=== PATIENT | male | born 1980 | race Caucasian/White ===

== ENCOUNTER 2021-11-29 17:32 | Emergency (ER) | payer OTHER ==
[~2021-11-29] VITALS: Ht 170.2 cm; Wt 113.0 kg
[~2021-11-29 17:32] MED LIST: AMLO10TA80 PO; ASPI-1406 MT; ATOR40TA70 MT; COR3 PO; FURO-151 MT; HYDR-4135 MT; HYDR-4135 PO; INSULIN 70/30 SUBCUT; LOSA100T32 MT; OMEP20CA14 MT; PY25 MT
[2021-11-29] MEDS ORDERED: DEXTROSE 50% WATER 50ML SYRINGE IV ONE (18:15)
[2021-11-29] MEDS ORDERED: SODIUM CHLORIDE 0.9% 1,000 ML IV ONE ×2 (18:15→18:30)
[2021-11-29 18:25] LABS: BASOPHILS % 1.2 % (0.0-2.0); EOSINOPHILS % 2.2 % (0.0-5.0); HEMATOCRIT. 39.8 % (42.0-52.0); HEMOGLOBIN. 13.3 g/dL (14.0-18.0); LYMPHOCYTES % 18.8 % (20.0-50.0); MEAN CORPUSCULAR HEMOGLOBIN 30.9 pg (28.0-32.0); MEAN CORPUSCULAR VOLUME 92.3 fL (80.0-94.0); MEAN PLATELET VOLUME 7.6 fl (7.4-10.4); MONOCYTES % 5.3 % (2.0-8.0); NEUTROPHILS % 72.5 % (40.0-76.0); PLATELET 435 x1000/uL (130-400); RED BLOOD CELL COUNT 4.31 mill/uL (4.7-6.1); RED CELL DISTRIBUTION WIDTH 14.5 % (11.6-14.6)
[2021-11-29] MEDS ORDERED: LEVETIRACETAM 500MG PREMIX 100 ML IV ONE (18:30)
[2021-11-29 18:36] LABS: ETHANOL BLOOD < 10 mg/dL
[2021-11-29 18:38] LABS: CLARITY URINE CLEAR (CLEAR); COLOR URINE YELLOW (YELLOW); KETONES URINE NEGATIVE (NEGATIVE); LEUKOCYTE ESTERASE URINE NEGATIVE (NEGATIVE); NITRITE URINE NEGATIVE (NEGATIVE); OCCULT BLOOD URINE NEGATIVE (NEGATIVE); PH URINE 6.5 (4.5-8.0); PROTEIN URINE 4+ (NEGATIVE); SPECIFIC GRAVITY URINE 1.013 (1.005-1.030); UROBILINOGEN URINE 0.2 E.U./dL (0.2-1.0)
[2021-11-29 18:52] LABS: CHLORIDE 109 mEq/L (98-107)
[2021-11-29 18:58] LABS: *AMPHETAMINES SCREEN URINE NEGATIVE (NEGATIVE); *BARBITURATES SCREEN URINE NEGATIVE (NEGATIVE); *BENZODIAZEPINES SCREEN URINE NEGATIVE (NEGATIVE); *COCAINE SCREEN URINE NEGATIVE (NEGATIVE); CANNABINOID URINE SCREEN NEGATIVE (NEGATIVE); METHADONE URINE SCREEN NEGATIVE (NEGATIVE); OPIATES URINE SCREEN NEGATIVE (NEGATIVE); PHENCYCLIDINE URINE SCREEN NEGATIVE (NEGATIVE)
[2021-11-29 19:10] LABS: BG BASE EXCESS -6.7 mmol/L (-2.0-2.0); BG CARBOXYHEMOGLOBIN 0.7 % (0.5-1.5); BG DEOXYHEMOGLOBIN 2.6 % (0.0-5.0); BG FRACTION INSPIRED OXYGEN 21; BG HCO3 ACT 18.1 mmol/L (22.0-26.0); BG OXYGEN SATURATION 97.4 % (92.0-98.5); BG OXYHEMOGLOBIN 96.7 % (94.0-97.0); BG PCO2 34.3 mmHg (35.0-45.0); BG PH 7.341 (7.350-7.450); BG PO2 95.6 mmHg (75.0-100.0); BG SAMPLE SITE RIGHT RADIAL; BG TOTAL HEMOGLOBIN 13.6 g/dL (12.0-18.0); BG VENT MODE ROOM AIR
[2021-11-29 23:23] VITALS: BP 132/77
== END 2021-11-30 01:12 | disposition left against medical advice (07) ==
LOC: ER 17:32 → CANBEDREQ 11-30 13:45
DX: E11.649 Type 2 diabetes mellitus with hypoglycemia without coma (principal); G40.909 Epilepsy, unspecified, not intractable, without status epilepticus; N28.9 Disorder of kidney and ureter, unspecified; J98.11 Atelectasis; D64.9 Anemia, unspecified; R94.31 Abnormal electrocardiogram [ECG] [EKG]; Z20.822 Contact with and (suspected) exposure to COVID-19; Z79.4 Long term (current) use of insulin; Z79.899 Other long term (current) drug therapy; Z88.2 Allergy status to sulfonamides
CPT/HCPCS: 36415; 36600; 70450; 71045; 80053; 80305; 80320; 81003; 82375; 82805; 82962; 83605; 83690; 84484; 85025; 87426; 93005; 96365; 96375; 99285; C9803; J1953; J7030; G0480

== ENCOUNTER 2022-04-30 05:41 | Emergency (ER) | payer OTHER ==
[~2022-04-30] VITALS: Ht 170.2 cm; Wt 87.0 kg
[2022-04-30] MEDS ORDERED: DEXTROSE 50% WATER 50ML SYRINGE IV PRN (06:00)
[2022-04-30 06:15] VITALS: BP 169/88
[2022-04-30 06:32] LABS: BASOPHILS % 1.1 % (0.0-2.0); EOSINOPHILS % 2.9 % (0.0-5.0); HEMATOCRIT. 47.5 % (42.0-52.0); HEMOGLOBIN. 15.7 g/dL (14.0-18.0); MEAN CORPUSCULAR HEMOGLOBIN 30.7 pg (28.0-32.0); MEAN CORPUSCULAR VOLUME 92.6 fL (80.0-94.0); MEAN PLATELET VOLUME 8.2 fl (7.4-10.4); MONOCYTES % 5.1 % (2.0-8.0); NEUTROPHILS % 67.9 % (40.0-76.0); PLATELET 442 x1000/uL (130-400); RED BLOOD CELL COUNT 5.13 mill/uL (4.7-6.1); RED CELL DISTRIBUTION WIDTH 14.5 % (11.6-14.6)
[2022-04-30 06:38] LABS: CHLORIDE 116 mEq/L (98-107)
== END 2022-04-30 13:00 | disposition home or self-care (01) ==
LOC: ER 05:47
DX: E11.649 Type 2 diabetes mellitus with hypoglycemia without coma (principal); I10 Essential (primary) hypertension; F12.10 Cannabis abuse, uncomplicated; Z79.899 Other long term (current) drug therapy; Z88.2 Allergy status to sulfonamides
CPT/HCPCS: 36415; 71045; 80053; 82962; 83880; 84484; 85025; 93005; 96374; 99291; Z7610

== ENCOUNTER 2022-11-08 21:51 | Emergency (ER) | payer OTHER ==
[~2022-11-08] VITALS: Ht 182.9 cm; Wt 95.0 kg
[~2022-11-08 21:51] MED LIST changes: -LOSA100T32 MT; +LOSA100T33 MT
[2022-11-08 21:53] VITALS: O2SAT 97
[2022-11-08] MEDS ORDERED: CEFTRIAXONE 1GM PREMIX 50 ML IV ONE (23:45)
[2022-11-08] MEDS ORDERED: SODIUM CHLORIDE 0.9% 1000ML BAG (SEPSIS BOLUS) IV ONE (23:45)
[2022-11-09 00:19] LABS: CLARITY URINE CLEAR (CLEAR); COLOR URINE YELLOW (YELLOW); GLUCOSE URINE NEGATIVE (NEGATIVE); KETONES URINE NEGATIVE (NEGATIVE); LEUKOCYTE ESTERASE URINE NEGATIVE (NEGATIVE); NITRITE URINE NEGATIVE (NEGATIVE); OCCULT BLOOD URINE NEGATIVE (NEGATIVE); PROTEIN URINE 3+ (NEGATIVE); SPECIFIC GRAVITY URINE 1.012 (1.005-1.030); UROBILINOGEN URINE 0.2 E.U./dL (0.2-1.0)
[2022-11-09 00:21] LABS: BACTERIA URINE NONE SEEN; RBC URINE 0-2 /hpf (0-2); SQUAMOUS EPITHELIAL CELL URINE NONE SEEN /lpf (RARE/1+); WBC URINE NONE SEEN /hpf (0-2); YEAST URINE NONE SEEN
[2022-11-09 00:22] LABS: BASOPHILS % 0.9 % (0.0-2.0); EOSINOPHILS % 2.1 % (0.0-5.0); HEMATOCRIT. 30.3 % (42.0-52.0); HEMOGLOBIN. 10.1 g/dL (14.0-18.0); LYMPHOCYTES % 8.8 % (20.0-50.0); MEAN CORPUSCULAR HGB CONC 33.3 g/dL (31.0-37.0); MEAN CORPUSCULAR VOLUME 93.1 fL (80.0-94.0); MEAN PLATELET VOLUME 8.6 fl (7.4-10.4); MONOCYTES % 5.2 % (2.0-8.0); PLATELET 325 x1000/uL (130-400); RED BLOOD CELL COUNT 3.26 mill/uL (4.7-6.1); RED CELL DISTRIBUTION WIDTH 13.5 % (11.6-14.6); WHITE BLOOD COUNT 10.3 x1000/uL (4.5-11.0)
[2022-11-09 00:29] LABS: PROTHROMBIN TIME 11.1 sec (9.6-11.0)
[2022-11-09] MEDS ORDERED: DEXT 5%/LACTATED RINGERS 1,000 ML IV ONE (00:45)
[2022-11-09 01:38] LABS: CHLORIDE 109 mEq/L (98-107); INDEX HEMOLYSI 1 (1-3); INDEX ICTERIC 1 (1-4); INDEX LIPEMIC 1 (1-3); POTASSIUM 4.5 mEq/L (3.5-5.1); SODIUM 140 mEq/L (136-145)
[2022-11-09 01:47] LABS: ALANINE AMINOTRANSFERASE 44 IU/L (13-61); ALBUMIN 3.4 g/dL (3.4-5.0); ASPARTATE AMINOTRANSFERASE 22 IU/L (15-37); BILIRUBIN TOTAL 0.6 mg/dL (0.1-1.0); CALCIUM 7.4 mg/dL (8.5-10.1); CARBON DIOXIDE 21 mEq/L (21-32); ETHANOL BLOOD < 10 mg/dL (<10); TROPONIN I HIGH SENSITIVITY 10 ng/L (<78)
[2022-11-09 02:02] LABS: GLUCOSE 39 mg/dL (70-105); UREA NITROGEN BLOOD 81 mg/dL (7-21)
[2022-11-09] MEDS ORDERED: AZITHROMYCIN 500MG/250ML 250 ML IV ONE (03:45)
[2022-11-09 04:37] LABS: CHLORIDE 112 mEq/L (98-107); INDEX HEMOLYSI 1 (1-3); INDEX ICTERIC 1 (1-4); INDEX LIPEMIC 1 (1-3); POTASSIUM 5.4 mEq/L (3.5-5.1); SODIUM 139 mEq/L (136-145)
[2022-11-09 04:46] LABS: ALANINE AMINOTRANSFERASE 36 IU/L (13-61); ALBUMIN 2.7 g/dL (3.4-5.0); ASPARTATE AMINOTRANSFERASE 17 IU/L (15-37); BILIRUBIN TOTAL 0.3 mg/dL (0.1-1.0); CALCIUM 7.1 mg/dL (8.5-10.1); CARBON DIOXIDE 17 mEq/L (21-32); CREATININE 4.6 mg/dL (0.6-1.3); GLUCOSE 220 mg/dL (70-105); PROTEIN TOTAL 5.8 g/dL (6.0-8.3); TROPONIN I HIGH SENSITIVITY 15 ng/L (<78); UREA NITROGEN BLOOD 78 mg/dL (7-21)
[2022-11-09 05:45] VITALS: TEMP 95
[2022-11-09 07:51] VITALS: BP 125/82; PULSE 97; RESP 21
== END 2022-11-09 08:18 | disposition left against medical advice (07) ==
LOC: ER 21:51 → CANBEDREQ 11-09 05:19 → ER 11-09 08:18
DX: E11.649 Type 2 diabetes mellitus with hypoglycemia without coma (principal); F12.10 Cannabis abuse, uncomplicated; I10 Essential (primary) hypertension; Z88.2 Allergy status to sulfonamides; Z79.899 Other long term (current) drug therapy
CPT/HCPCS: 80053 ×2; 81003; 80320; 82962 ×2; 83605; 85025; 85610; 87040; 87086; 84484 ×2; 36415 ×2; 84145; 71045; 93005; 99291; 74176; 96367; 96365; J7030; J0456; J0696; J7121; G0480

== ENCOUNTER 2023-01-06 19:17 | Emergency (ER) | payer OTHER ==
[~2023-01-06] VITALS: Ht 172.7 cm; Wt 92.0 kg
[2023-01-06 19:18] VITALS: O2SAT 99
[2023-01-06 19:45] VITALS: BP 193/89; PULSE 94; RESP 18; TEMP 98.3
== END 2023-01-06 20:40 | disposition home or self-care (01) ==
LOC: ER 19:17
DX: E16.2 Hypoglycemia, unspecified (principal); E11.9 Type 2 diabetes mellitus without complications; I10 Essential (primary) hypertension; F12.90 Cannabis use, unspecified, uncomplicated; Z98.890 Other specified postprocedural states; Z88.2 Allergy status to sulfonamides; Z88.8 Allergy status to other drugs, medicaments and biological substances
CPT/HCPCS: 82962; 99283

== ENCOUNTER 2023-01-16 08:46 | Emergency (ER) | payer OTHER ==
[~2023-01-16] VITALS: Ht 180.3 cm; Wt 104.5 kg
[2023-01-16 08:59] VITALS: O2SAT 99
[2023-01-16 10:03] LABS: BASOPHILS % 1.5 % (0.0-2.0); CLARITY URINE CLEAR (CLEAR); COLOR URINE YELLOW (YELLOW); EOSINOPHILS % 0.5 % (0.0-5.0); GLUCOSE URINE TRACE (NEGATIVE); HEMATOCRIT. 30.8 % (42.0-52.0); HEMOGLOBIN. 10.4 g/dL (14.0-18.0); KETONES URINE NEGATIVE (NEGATIVE); LEUKOCYTE ESTERASE URINE NEGATIVE (NEGATIVE); MEAN CORPUSCULAR HEMOGLOBIN 30.9 pg (28.0-32.0); MEAN CORPUSCULAR HGB CONC 33.7 g/dL (31.0-37.0); MEAN CORPUSCULAR VOLUME 91.9 fL (80.0-94.0); NITRITE URINE NEGATIVE (NEGATIVE); OCCULT BLOOD URINE TRACE (NEGATIVE); PH URINE 6.5 (4.5-8.0); PROTEIN URINE 4+ (NEGATIVE); RED BLOOD CELL COUNT 3.35 mill/uL (4.7-6.1); RED CELL DISTRIBUTION WIDTH 13.3 % (11.6-14.6); SPECIFIC GRAVITY URINE 1.014 (1.005-1.030); UROBILINOGEN URINE 0.2 E.U./dL (0.2-1.0)
[2023-01-16 10:08] LABS: DIFFERENTIAL COMMENT 1
[2023-01-16 10:19] LABS: ALANINE AMINOTRANSFERASE 45 IU/L (10-49); ALBUMIN 4.2 g/dL (3.2-4.8); ASPARTATE AMINOTRANSFERASE 30 IU/L (<34); BILIRUBIN TOTAL 0.3 mg/dL (0.1-1.0); CALCIUM 7.9 mg/dL (8.7-10.4); CARBON DIOXIDE 19 mEq/L (21-32); CHLORIDE 110 mEq/L (98-107); CREATININE 4.3 mg/dL (0.6-1.3); GLUCOSE 79 mg/dL (70-105); POTASSIUM 4.5 mEq/L (3.5-5.1); PROTEIN TOTAL 6.6 g/dL (6.0-8.3); SODIUM 143 mEq/L (136-145); TROPONIN I HIGH SENSITIVITY 28 ng/L (3.0-53); UREA NITROGEN BLOOD 56 mg/dL (9-23)
[2023-01-16 10:30] LABS: ETHANOL BLOOD < 10 mg/dL (<10)
[2023-01-16 10:40] LABS: BACTERIA URINE FEW; RBC URINE 0-2 /hpf (0-2); SQUAMOUS EPITHELIAL CELL URINE FEW /lpf (RARE/1+); YEAST URINE NONE SEEN
[2023-01-16] MEDS ORDERED: HYDRALAZINE HCL 50MG TABLET PO ONE (11:00)
[2023-01-16] MEDS ORDERED: CALCIUM GLUCONATE 1GM PREMIX 50 ML IV NR (11:00)
[2023-01-16 12:00] LABS: *AMPHETAMINES SCREEN URINE NEGATIVE (NEGATIVE); *BARBITURATES SCREEN URINE NEGATIVE (NEGATIVE); *BENZODIAZEPINES SCREEN URINE NEGATIVE (NEGATIVE); *COCAINE SCREEN URINE PRESUMPTIVE POSITIVE (NEGATIVE); CANNABINOID URINE SCREEN NEGATIVE (NEGATIVE); ECSTASY MDMA SCREEN URINE NEGATIVE (NEGATIVE); METHADONE URINE SCREEN Neg (NEGATIVE); OPIATES URINE SCREEN NEGATIVE (NEGATIVE); PHENCYCLIDINE URINE SCREEN NEGATIVE (NEGATIVE)
[2023-01-16] MEDS ORDERED: DEXTROSE 50% WATER 50ML SYRINGE IV NR (13:30)
[2023-01-16 14:37] VITALS: BP 183/88; PULSE 88; RESP 22; TEMP 97.6
== END 2023-01-16 14:48 | disposition short-term general hospital (02) ==
LOC: ER 08:57 → CANBEDREQ 13:12 → ER 14:48
DX: E11.65 Type 2 diabetes mellitus with hyperglycemia (principal); F12.10 Cannabis abuse, uncomplicated; I10 Essential (primary) hypertension; Z88.2 Allergy status to sulfonamides; Z79.899 Other long term (current) drug therapy; Z86.59 Personal history of other mental and behavioral disorders
CPT/HCPCS: 80053; 80305; 81003; 80320; 82962; 85025; 84484; 36415; 71045; 96374; 99285; J0610; Z7610 ×3; G0480

== ENCOUNTER 2023-02-15 18:45 | Emergency (ER) | payer OTHER ==
[~2023-02-15] VITALS: Ht 177.8 cm; Wt 77.0 kg
[2023-02-15 19:04] VITALS: BP 166/79; PULSE 71; RESP 16; TEMP 98.9; O2SAT 98
== END 2023-02-15 20:24 | disposition home or self-care (01) ==
LOC: ER 18:45
DX: T82.838A Hemorrhage due to vascular prosthetic devices, implants and grafts, initial encounter (principal); E11.9 Type 2 diabetes mellitus without complications; I10 Essential (primary) hypertension; F12.10 Cannabis abuse, uncomplicated; Z79.899 Other long term (current) drug therapy; X58.XXXA Exposure to other specified factors, initial encounter
CPT/HCPCS: 99283

== ENCOUNTER 2023-02-19 16:32 | Emergency (ER) | payer OTHER ==
[~2023-02-19] VITALS: Ht 177.8 cm; Wt 80.0 kg
[2023-02-19 16:35] VITALS: BP 161/75; PULSE 68; RESP 16; TEMP 97.7; O2SAT 97
[2023-02-19 17:14] LABS: BASOPHILS % 0.5 % (0.0-2.0); EOSINOPHILS % 3.3 % (0.0-5.0); HEMATOCRIT. 27.3 % (42.0-52.0); HEMOGLOBIN. 9.1 g/dL (14.0-18.0); LYMPHOCYTES % 12.8 % (20.0-50.0); MEAN CORPUSCULAR HEMOGLOBIN 30.7 pg (28.0-32.0); MEAN CORPUSCULAR HGB CONC 33.4 g/dL (31.0-37.0); MEAN CORPUSCULAR VOLUME 91.8 fL (80.0-94.0); MEAN PLATELET VOLUME 7.9 fl (7.4-10.4); NEUTROPHILS % 75.4 % (40.0-76.0); PLATELET 294 x1000/uL (130-400); RED BLOOD CELL COUNT 2.98 mill/uL (4.7-6.1); RED CELL DISTRIBUTION WIDTH 13.1 % (11.6-14.6); WHITE BLOOD COUNT 8.9 x1000/uL (4.5-11.0)
[2023-02-19 17:30] LABS: ALANINE AMINOTRANSFERASE 13 IU/L (10-49); ASPARTATE AMINOTRANSFERASE 17 IU/L (<34); BILIRUBIN TOTAL < 0.2 mg/dL (0.1-1.0); CALCIUM 7.9 mg/dL (8.7-10.4); CARBON DIOXIDE 21 mEq/L (21-32); CHLORIDE 105 mEq/L (98-107); GLUCOSE 62 mg/dL (70-105); PROTEIN TOTAL 6.9 g/dL (6.0-8.3); SODIUM 140 mEq/L (136-145); UREA NITROGEN BLOOD 57 mg/dL (9-23)
[2023-02-19 17:59] LABS: CREATININE 5.3 mg/dL (0.6-1.3)
== END 2023-02-19 17:27 | disposition left against medical advice (07) ==
LOC: ER 16:32
DX: E16.2 Hypoglycemia, unspecified (principal); N17.9 Acute kidney failure, unspecified; E11.9 Type 2 diabetes mellitus without complications; I10 Essential (primary) hypertension; G40.909 Epilepsy, unspecified, not intractable, without status epilepticus; F12.90 Cannabis use, unspecified, uncomplicated; Z98.890 Other specified postprocedural states; Z88.2 Allergy status to sulfonamides; Z88.8 Allergy status to other drugs, medicaments and biological substances
CPT/HCPCS: 36415; 80053; 82962; 85025; 99283

== ENCOUNTER 2023-03-05 19:57 | Emergency (ER) | payer OTHER ==
[~2023-03-05] VITALS: Ht 175.3 cm; Wt 100.0 kg
[2023-03-05 20:15] VITALS: BP 189/98; PULSE 90; RESP 20; TEMP 98.4; O2SAT 100
== END 2023-03-05 21:07 | disposition left against medical advice (07) ==
LOC: ER 19:57
DX: E11.649 Type 2 diabetes mellitus with hypoglycemia without coma (principal); I10 Essential (primary) hypertension; F12.10 Cannabis abuse, uncomplicated; Z79.899 Other long term (current) drug therapy
CPT/HCPCS: 82962; 99283

== ENCOUNTER 2023-09-26 03:10 | Emergency (ER) | payer MEDICARE, MEDICAID ==
[~2023-09-26] VITALS: Ht 175.3 cm; Wt 104.0 kg
[~2023-09-26 03:10] MED LIST changes: -HYDR-4135 MT; -HYDR-4135 PO; +HYDR50TA39 PO; +HYDR50TA40 MT
[2023-09-26 03:16] VITALS: O2SAT 98
[2023-09-26 03:47] LABS: BASOPHILS % 0.9 % (0.0-2.0); EOSINOPHILS % 2.5 % (0.0-5.0); HEMATOCRIT. 39.8 % (42.0-52.0); HEMOGLOBIN. 13.6 g/dL (14.0-18.0); LYMPHOCYTES % 14.7 % (20.0-50.0); MEAN CORPUSCULAR HEMOGLOBIN 31.8 pg (28.0-32.0); MEAN CORPUSCULAR VOLUME 93.5 fL (80.0-94.0); MEAN PLATELET VOLUME 7.4 fl (7.4-10.4); MONOCYTES % 6.3 % (2.0-8.0); NEUTROPHILS % 75.6 % (40.0-76.0); PLATELET 407 x1000/uL (130-400); RED BLOOD CELL COUNT 4.26 mill/uL (4.7-6.1); RED CELL DISTRIBUTION WIDTH 14.2 % (11.6-14.6); WHITE BLOOD COUNT 8.9 x1000/uL (4.5-11.0)
[2023-09-26 03:51] LABS: CHLORIDE 96 mEq/L (98-107); POTASSIUM 3.6 mEq/L (3.5-5.1); SODIUM 130 mEq/L (136-145)
[2023-09-26 03:52] LABS: CALCIUM 8.9 mg/dL (8.7-10.4); CARBON DIOXIDE 23 mEq/L (21-32)
[2023-09-26 03:57] LABS: GLUCOSE 118 mg/dL (70-105)
[2023-09-26 03:58] LABS: UREA NITROGEN BLOOD 52 mg/dL (9-23)
[2023-09-26 03:59] LABS: ALANINE AMINOTRANSFERASE 30 IU/L (10-49); ALBUMIN 3.9 g/dL (3.2-4.8); ASPARTATE AMINOTRANSFERASE 24 IU/L (<34); TROPONIN I HIGH SENSITIVITY 15 ng/L (3.0-53)
[2023-09-26 04:00] LABS: BILIRUBIN DIRECT 0.1 mg/dL (<=3.0); BILIRUBIN TOTAL 0.3 mg/dL (0.1-1.0); PROTEIN TOTAL 6.7 g/dL (6.0-8.3)
[2023-09-26] MEDS: HYDRALAZINE 20MG/ML VIAL IV ONE (04:02)
[2023-09-26 04:14] LABS: ETHANOL BLOOD < 10 mg/dL (<10)
[2023-09-26 04:15] LABS: CREATININE 8.1 mg/dL (0.6-1.3)
[2023-09-26 05:25] VITALS: BP 107/61; PULSE 65; RESP 21; TEMP 36.72516; O2SAT 97
[2023-09-26 05:35] LABS: *AMPHETAMINES SCREEN URINE NEGATIVE (NEGATIVE); *BARBITURATES SCREEN URINE NEGATIVE (NEGATIVE); *BENZODIAZEPINES SCREEN URINE NEGATIVE (NEGATIVE); *COCAINE SCREEN URINE PRESUMPTIVE POSITIVE (NEGATIVE); CANNABINOID URINE SCREEN NEGATIVE (NEGATIVE); ECSTASY MDMA SCREEN URINE NEGATIVE (NEGATIVE); METHADONE URINE SCREEN NEGATIVE (NEGATIVE); OPIATES URINE SCREEN PRESUMPTIVE POSITIVE (NEGATIVE); PHENCYCLIDINE URINE SCREEN NEGATIVE (NEGATIVE)
== END 2023-09-26 05:29 | disposition home or self-care (01) ==
LOC: ER 03:40
DX: E11.649 Type 2 diabetes mellitus with hypoglycemia without coma (principal); I12.0 Hypertensive chronic kidney disease with stage 5 chronic kidney disease or end stage renal disease; E11.22 Type 2 diabetes mellitus with diabetic chronic kidney disease; N18.6 End stage renal disease; F12.10 Cannabis abuse, uncomplicated; Z88.2 Allergy status to sulfonamides; Z86.59 Personal history of other mental and behavioral disorders; Z79.82 Long term (current) use of aspirin
CPT/HCPCS: 80076; 80305; 80048; 80320; 82962; 83880; 84443; 85025; 84484; 36415; 71045; 93005; 99285; J0360; G0480

== ENCOUNTER 2023-12-22 11:24 | Inpatient (IN) | payer MEDICARE, MEDICAID ==
[~2023-12-22] VITALS: Ht 175.3 cm; Wt 104.3 kg
[2023-12-22 11:29] VITALS: O2SAT 95
[2023-12-22 11:52] LABS: BASOPHILS % 1.3 % (0.0-2.0); EOSINOPHILS % 3.7 % (0.0-5.0); HEMATOCRIT. 38.2 % (42.0-52.0); HEMOGLOBIN. 12.9 g/dL (14.0-18.0); LYMPHOCYTES % 15.3 % (20.0-50.0); MEAN CORPUSCULAR HEMOGLOBIN 32.4 pg (28.0-32.0); MEAN CORPUSCULAR HGB CONC 33.8 g/dL (31.0-37.0); MEAN CORPUSCULAR VOLUME 95.8 fL (80.0-94.0); MEAN PLATELET VOLUME 7.5 fl (7.4-10.4); MONOCYTES % 5.1 % (2.0-8.0); NEUTROPHILS % 74.6 % (40.0-76.0); PLATELET 381 x1000/uL (130-400); RED BLOOD CELL COUNT 3.98 mill/uL (4.7-6.1); RED CELL DISTRIBUTION WIDTH 14.7 % (11.6-14.6); WHITE BLOOD COUNT 9.2 x1000/uL (4.5-11.0)
[2023-12-22 11:57] LABS: CARBON DIOXIDE 30 mEq/L (21-32); CHLORIDE 98 mEq/L (98-107); POTASSIUM 4.5 mEq/L (3.5-5.1); SODIUM 139 mEq/L (136-145)
[2023-12-22 11:58] LABS: CALCIUM 8.2 mg/dL (8.7-10.4)
[2023-12-22 12:03] LABS: GLUCOSE 130 mg/dL (70-105); UREA NITROGEN BLOOD 48 mg/dL (9-23)
[2023-12-22 12:05] LABS: TROPONIN I HIGH SENSITIVITY 13 ng/L (3.0-53)
[2023-12-22 12:25] LABS: CREATININE 8.4 mg/dL (0.6-1.3)
[2023-12-22 14:38] VITALS: BP 181/90; PULSE 63; RESP 20; TEMP 36.5848
[2023-12-22] MEDS ORDERED: ONDANSETRON HCL 4MG/2ML INJ IV PRN (15:00)
[2023-12-22] MEDS ORDERED: IPRATROPIUM/ALBUTEROL 0.5-3(2.5)MG/3ML NEB HHN PRN (15:00)
[2023-12-22] MEDS ORDERED: DOCUSATE SODIUM 100MG CAPSULE PO PRN (15:00)
[2023-12-22] MEDS ORDERED: CLONIDINE 0.1MG TABLET PO PRN (15:00)
[2023-12-22] MEDS ORDERED: ACETAMINOPHEN 325MG TABLET PO PRN ×2 (15:00)
[2023-12-22] MEDS ORDERED: FUROSEMIDE 40MG TABLET PO SCH (15:30)
[2023-12-22] MEDS: AMLODIPINE 10MG TABLET PO SCH (15:33)
[2023-12-22 15:59] LABS: *AMPHETAMINES SCREEN URINE NEGATIVE (NEGATIVE)
[2023-12-22 16:00] VITALS: BP 195/100; PULSE 69; RESP 20; TEMP 36.22512; O2SAT 99
[2023-12-22 16:00] LABS: *BARBITURATES SCREEN URINE NEGATIVE (NEGATIVE); *BENZODIAZEPINES SCREEN URINE NEGATIVE (NEGATIVE); *COCAINE SCREEN URINE PRESUMPTIVE POSITIVE (NEGATIVE); CANNABINOID URINE SCREEN PRESUMPTIVE POSITIVE (NEGATIVE); ECSTASY MDMA SCREEN URINE NEGATIVE (NEGATIVE); METHADONE URINE SCREEN NEGATIVE (NEGATIVE); OPIATES URINE SCREEN NEGATIVE (NEGATIVE); PHENCYCLIDINE URINE SCREEN NEGATIVE (NEGATIVE)
[2023-12-22] MEDS: HYDRALAZINE HCL 50MG TABLET PO SCH (16:48)
[2023-12-22] MEDS: DEXTROSE 50% WATER 50ML SYRINGE IV PRN (17:35)
[2023-12-22] MEDS: BLOOD SUGAR DIAGNOSTIC STRIP TEST SCH (17:38)
[2023-12-22] MEDS: INSULIN LISPRO 100 UNITS/ML SUBCUT SCH (17:38)
[2023-12-22] MEDS ORDERED: CARVEDILOL 3.125 MG TABLET PO SCH (21:00)
[2023-12-22] MEDS ORDERED: ATORVASTATIN CALCIUM 40MG TABLET PO SCH (21:00)
[2023-12-22] MEDS ORDERED: INSULIN GLARGINE 100 UNITS/ML SUBCUT SCH (22:00)
[2023-12-23] MEDS ORDERED: PANTOPRAZOLE 40MG DR TABLET PO SCH (07:20)
[2023-12-23] MEDS ORDERED: LOSARTAN 100 MG TABLET PO SCH (09:00)
[2023-12-23] MEDS ORDERED: INSULIN GLARGINE 100 UNITS/ML SUBCUT SCH (10:00)
== END 2023-12-22 20:00 | disposition left against medical advice (07) | DRG 698 ==
LOC: ER 11:24 → EDBEDREQ 12:33 → EDBEDREQSVC 12:33 → EDBEDREQTM 12:33 → 6EST 13:23
PROVIDERS: ADMIT Internal Medicine; ATTEND Internal Medicine
DX: T82.41XA Breakdown (mechanical) of vascular dialysis catheter, initial encounter (principal); N18.6 End stage renal disease; I12.0 Hypertensive chronic kidney disease with stage 5 chronic kidney disease or end stage renal disease; Z99.2 Dependence on renal dialysis; E11.22 Type 2 diabetes mellitus with diabetic chronic kidney disease; G40.909 Epilepsy, unspecified, not intractable, without status epilepticus; Z53.29 Procedure and treatment not carried out because of patient's decision for other reasons; E78.00 Pure hypercholesterolemia, unspecified; Z96.642 Presence of left artificial hip joint; Z79.4 Long term (current) use of insulin; Z88.2 Allergy status to sulfonamides; Z88.3 Allergy status to other anti-infective agents; Z79.899 Other long term (current) drug therapy; Y71.2 Prosthetic and other implants, materials and accessory cardiovascular devices associated with adverse incidents; Y92.89 Other specified places as the place of occurrence of the external cause
CPT/HCPCS: 36415; 71045; 80048; 80305; 82962; 83036; 83880; 84484; 85025; 93005; 99285

== ENCOUNTER 2024-02-22 14:07 | Emergency (ER) | payer MEDICARE, MEDICAID ==
[~2024-02-22] VITALS: Ht 185.4 cm; Wt 125.0 kg
[2024-02-22 14:16] VITALS: BP 140/88; PULSE 60; RESP 16; TEMP 98.4; O2SAT 96
== END 2024-02-22 15:22 | disposition left against medical advice (07) ==
LOC: ER 14:07
DX: E11.649 Type 2 diabetes mellitus with hypoglycemia without coma (principal); I12.0 Hypertensive chronic kidney disease with stage 5 chronic kidney disease or end stage renal disease; N18.6 End stage renal disease; Z99.2 Dependence on renal dialysis; F12.10 Cannabis abuse, uncomplicated; Z79.899 Other long term (current) drug therapy; Z88.1 Allergy status to other antibiotic agents; Z88.2 Allergy status to sulfonamides; Z79.82 Long term (current) use of aspirin; Z79.4 Long term (current) use of insulin
CPT/HCPCS: 93005; 99283

== ENCOUNTER 2024-03-25 11:33 | Emergency (ER) | payer MEDICARE, MEDICAID ==
[~2024-03-25] VITALS: Ht 172.7 cm; Wt 100.0 kg
[2024-03-25 11:35] VITALS: O2SAT 98
[2024-03-25 12:50] LABS: HEMATOCRIT. 37.6 % (42.0-52.0); HEMOGLOBIN. 12.5 g/dL (14.0-18.0); MEAN CORPUSCULAR HEMOGLOBIN 31.8 pg (28.0-32.0); MEAN CORPUSCULAR HGB CONC 33.1 g/dL (31.0-37.0); MEAN CORPUSCULAR VOLUME 95.9 fL (80.0-94.0); MEAN PLATELET VOLUME 8.6 fl (7.4-10.4); PLATELET 239 x1000/uL (130-400); RED BLOOD CELL COUNT 3.92 mill/uL (4.7-6.1); WHITE BLOOD COUNT 18.8 x1000/uL (4.5-11.0)
[2024-03-25 12:51] LABS: DIFFERENTIAL COMMENT 1
[2024-03-25 12:58] LABS: POTASSIUM 3.9 mEq/L (3.5-5.1)
[2024-03-25 13:00] LABS: CALCIUM 8.6 mg/dL (8.7-10.4)
[2024-03-25 13:09] LABS: CREATININE 8.9 mg/dL (0.6-1.3)
[2024-03-25] MEDS: ACETAMINOPHEN 325MG TABLET PO ONE (13:09)
[2024-03-25 13:41] LABS: INFLUENZA TYPE A Presumptive Negative (Pres. Neg.); INFLUENZA TYPE B Presumptive Negative (Pres. Neg.)
[2024-03-25 13:59] LABS: PLATELET ESTIMATE NORMAL
[2024-03-25 14:12] LABS: LACTIC ACID 2.6 mmol/L (0.4-2.0)
[2024-03-25 14:26] LABS: CLARITY URINE CLEAR (CLEAR); COLOR URINE YELLOW (YELLOW); GLUCOSE URINE 3+ (NEGATIVE); KETONES URINE NEGATIVE (NEGATIVE); LEUKOCYTE ESTERASE URINE NEGATIVE (NEGATIVE); NITRITE URINE NEGATIVE (NEGATIVE); OCCULT BLOOD URINE NEGATIVE (NEGATIVE); PH URINE 5.5 (4.5-8.0); PROTEIN URINE 3+ (NEGATIVE); SPECIFIC GRAVITY URINE 1.017 (1.005-1.030); UROBILINOGEN URINE 0.2 E.U./dL (0.2-1.0)
[2024-03-25 14:41] LABS: BACTERIA URINE FEW; RBC URINE 0-2 /hpf (0-2); SQUAMOUS EPITHELIAL CELL URINE NONE SEEN /lpf (RARE/1+); WBC URINE 0-2 /hpf (0-2); YEAST URINE NONE SEEN
[2024-03-25 14:55] LABS: TROPONIN I HIGH SENSITIVITY 97 ng/L (3.0-53)
[2024-03-25 15:46] LABS: TROPONIN I HIGH SENSITIVITY 104 ng/L (3.0-53)
[2024-03-25] MEDS ORDERED: DIPH-1091 MT (18:31)
[2024-03-25] MEDS ORDERED: TOPUD MT (18:31)
[2024-03-25] MEDS ORDERED: AZIT250T12 MT (18:31)
[2024-03-25 18:43] VITALS: BP 143/77; PULSE 82; RESP 18; TEMP 37.1; O2SAT 99
== END 2024-03-25 19:04 | disposition home or self-care (01) ==
LOC: ER 11:38 → EDBEDREQ 17:41 → CANBEDREQ 18:38 → ER 19:04
DX: K52.9 Noninfective gastroenteritis and colitis, unspecified (principal); R50.9 Fever, unspecified; E11.9 Type 2 diabetes mellitus without complications; Z20.822 Contact with and (suspected) exposure to COVID-19; Z79.82 Long term (current) use of aspirin; Z79.899 Other long term (current) drug therapy; Z89.429 Acquired absence of other toe(s), unspecified side; Z99.2 Dependence on renal dialysis; Z96.649 Presence of unspecified artificial hip joint; Z88.1 Allergy status to other antibiotic agents; Z88.2 Allergy status to sulfonamides
CPT/HCPCS: 36415; 71045; 80048; 81003; 83605; 84484; 85025; 87077; 87186; 87426; 87804; 93005; 99285; A4606

== ENCOUNTER 2024-09-25 12:23 | Inpatient (IN) | payer MEDICARE, MEDICAID ==
[~2024-09-25] VITALS: Ht 172.7 cm; Wt 74.9 kg
[2024-09-25] VITALS (29 sets, daily range): BP systolic 90–146; BP diastolic 56–80; PULSE 59–82; RESP 6–27; TEMP 36.8–37.0296; O2SAT 93–100
[~2024-09-25 12:23] MED LIST changes: +AMOX-494 MT; +DIPH-1091 MT; -HYDR50TA39 PO; -HYDR50TA40 MT; +TOPUD MT
[2024-09-25 13:14] LABS: BASOPHILS % 1.4 % (0.0-2.0); EOSINOPHILS % 1.1 % (0.0-5.0); HEMATOCRIT. 44.9 % (42.0-52.0); HEMOGLOBIN. 14.3 g/dL (14.0-18.0); LYMPHOCYTES % 13.3 % (20.0-50.0); MEAN PLATELET VOLUME 8.4 fl (7.4-10.4); MONOCYTES % 3.8 % (2.0-8.0); NEUTROPHILS % 80.4 % (40.0-76.0); PLATELET 333 x1000/uL (130-400); RED BLOOD CELL COUNT 4.51 mill/uL (4.7-6.1); RED CELL DISTRIBUTION WIDTH 15.5 % (11.6-14.6)
[2024-09-25 13:28] LABS: INR 1.0
[2024-09-25 13:35] LABS: UREA NITROGEN BLOOD 52 mg/dL (9-23)
[2024-09-25 13:36] LABS: ASPARTATE AMINOTRANSFERASE 19 IU/L (<34)
[2024-09-25 13:37] LABS: BILIRUBIN DIRECT 0.3 mg/dL (<=3.0); BILIRUBIN TOTAL 0.8 mg/dL (0.1-1.0); PROTEIN TOTAL 6.8 g/dL (6.0-8.3)
[2024-09-25 14:08] LABS: CREATININE 9.0 mg/dL (0.6-1.3)
[2024-09-25] MEDS: INSULIN REGULAR (HUMULIN R) 1000UNITS/10ML VIAL SUBCUT ONE (14:50)
[2024-09-25 15:23] LABS: BG BASE EXCESS -10.1 mmol/L (-2.0-3.0); BG CARBOXYHEMOGLOBIN 2.2 % (0.5-1.5); BG DEOXYHEMOGLOBIN 3.8 % (0.0-5.0); BG FRACTION INSPIRED OXYGEN 21; BG HCO3 ACT 13.9 mmol/L (21.0-28.0); BG METHEMOGLOBIN 0.2 % (0.5-1.5); BG OXYGEN SATURATION 96.1 % (94.0-98.0); BG OXYHEMOGLOBIN 93.8 % (94.0-98.0); BG PCO2 26.8 mmHg (35.0-48.0); BG PH 7.333 (7.350-7.450); BG PO2 88.8 mmHg (83.0-108.0); BG SAMPLE SITE RIGHT RADIAL; BG TOTAL HEMOGLOBIN 15.1 g/dL (13.5-17.5); BG VENT MODE ROOM AIR
[2024-09-25] MEDS ORDERED: DEXTROSE 50% WATER 50ML SYRINGE IV PRN ×3 (15:30→23:15)
[2024-09-25] MEDS ORDERED: BLOOD SUGAR DIAGNOSTIC STRIP TEST PRN ×2 (15:30→16:30)
[2024-09-25] MEDS ORDERED: INSULIN REGULAR (DRIP) 100 UNITS in SODIUM CHLORIDE 0.9% 99 ML IV SCH (15:30)
[2024-09-25] MEDS: BLOOD SUGAR DIAGNOSTIC STRIP TEST SCH ×2 (15:50→17:09)
[2024-09-25] MEDS: INSULIN REGULAR 100U/100ML PMX 100 ML IV SCH (16:07)
[2024-09-25] MEDS ORDERED: CLONIDINE 0.1MG TABLET PO PRN (16:15)
[2024-09-25] MEDS ORDERED: DOCUSATE SODIUM 100MG CAPSULE PO PRN (16:15)
[2024-09-25] MEDS ORDERED: GUAIFENESIN 200MG/10ML SUGAR FREE UDC PO PRN (16:15)
[2024-09-25] MEDS ORDERED: MAGNESIUM/ALUMINUM HYDROXIDE/SIMETHICONE 30ML UDC PO PRN (16:15)
[2024-09-25] MEDS ORDERED: ONDANSETRON HCL 4MG/2ML INJ IV PRN (16:15)
[2024-09-25] MEDS ORDERED: IPRATROPIUM/ALBUTEROL 0.5-3(2.5)MG/3ML NEB HHN PRN (16:15)
[2024-09-25] MEDS: SODIUM CHLORIDE 0.9% 500 ML IV ONE (17:15)
[2024-09-25] MEDS: PIPERACILLIN/TAZO 3.375G/50ML 50 ML IV SCH (17:16)
[2024-09-25] MEDS: SODIUM ZIRCONIUM CYCLOSILICATE 10GM/PACKET PO SCH (17:16)
[2024-09-25] MEDS: ACETAMINOPHEN 325MG TABLET PO PRN (21:59)
[2024-09-25] MEDS ORDERED: INSULIN GLARGINE 100 UNITS/ML SUBCUT SCH (22:00)
[2024-09-25] MEDS: SODIUM CHLORIDE 0.9% 1,000 ML IV SCH (22:00)
[2024-09-25 22:01] LABS: UREA NITROGEN BLOOD 59 mg/dL (9-23)
[2024-09-25 22:03] LABS: PHOSPHORUS 2.6 mg/dL (2.5-4.9)
[2024-09-25 22:08] LABS: CREATINE KINASE MB FRACTION 0.8 ng/mL (0.5-3.6); TROPONIN I HIGH SENSITIVITY 37 ng/L (3.0-53)
[2024-09-25 22:17] LABS: CREATININE 9.5 mg/dL (0.6-1.3)
[2024-09-25 22:38] LABS: HEPATITIS A AB IGM NEGATIVE (Negative)
[2024-09-25 22:39] LABS: HEPATITIS B CORE AB IGM NEGATIVE (Negative)
[2024-09-25] MEDS ORDERED: MAGNESIUM 2 G PREMIX 50 ML IV PRN (22:45)
[2024-09-25] MEDS ORDERED: POTASSIUM CHLORIDE 40 MEQ in SODIUM CHLORIDE 0.9% 230 ML IV PRN (22:45)
[2024-09-25] MEDS ORDERED: SODIUM PHOSPHATE 15 MMOL in SODIUM CHLORIDE 0.9% 245 ML IV PRN (22:45)
[2024-09-25 22:47] LABS: HEPATITIS C AB REACTIVE (Pos) (Negative)
[2024-09-25] MEDS: KCL 20MEQ/100ML PREMIX 100 ML IV PRN (22:50)
[2024-09-25] MEDS: DEXT 5%/0.9% NACL 1,000 ML IV SCH ×2 (22:51→23:18)
[2024-09-25 23:25] LABS: PHOSPHORUS 2.7 mg/dL (2.5-4.9)
[2024-09-26] VITALS (79 sets, daily range): BP systolic 88–183; BP diastolic 49–132; PULSE 52–91; RESP 13–49; TEMP 36.6696–37.3; O2SAT 95–100
[2024-09-26] MEDS ORDERED: INSULIN REGULAR 100U/100ML PMX 100 ML IV SCH (00:30)
[2024-09-26] MEDS ORDERED: INSULIN REGULAR (DRIP) 100 UNITS in SODIUM CHLORIDE 0.9% 99 ML IV SCH (00:30)
[2024-09-26 02:08] LABS: UREA NITROGEN BLOOD 55 mg/dL (9-23)
[2024-09-26 02:09] LABS: CREATINE KINASE MB FRACTION 0.5 ng/mL (0.5-3.6); TROPONIN I HIGH SENSITIVITY 40 ng/L (3.0-53)
[2024-09-26 02:10] LABS: PHOSPHORUS 2.3 mg/dL (2.5-4.9)
[2024-09-26 02:18] LABS: CREATININE 9.3 mg/dL (0.6-1.3)
[2024-09-26] MEDS: PIPERACILLIN/TAZO 3.375G/50ML 50 ML IV SCH ×2 (06:36→20:20)
[2024-09-26 06:51] LABS: BASOPHILS % 0.9 % (0.0-2.0); EOSINOPHILS % 0.1 % (0.0-5.0); HEMATOCRIT. 38.4 % (42.0-52.0); HEMOGLOBIN. 12.6 g/dL (14.0-18.0); LYMPHOCYTES % 13.3 % (20.0-50.0); MEAN PLATELET VOLUME 8.4 fl (7.4-10.4); MONOCYTES % 8.7 % (2.0-8.0); NEUTROPHILS % 77.0 % (40.0-76.0); PLATELET 335 x1000/uL (130-400); RED BLOOD CELL COUNT 4.03 mill/uL (4.7-6.1); RED CELL DISTRIBUTION WIDTH 14.7 % (11.6-14.6)
[2024-09-26 07:25] LABS: PHOSPHORUS 3.7 mg/dL (2.5-4.9); TRIGLYCERIDE 65.0 mg/dL (0-150)
[2024-09-26 07:26] LABS: LDL CHOLESTEROL 69.0 mg/dL (5-100)
[2024-09-26 07:29] LABS: T4 FREE 1.41 ng/dL (0.89-1.76)
[2024-09-26] MEDS ORDERED: BLOOD SUGAR DIAGNOSTIC STRIP TEST SCH (07:50)
[2024-09-26] MEDS ORDERED: INSULIN LISPRO 100 UNITS/ML SUBCUT SCH (08:20)
[2024-09-26] MEDS: PANTOPRAZOLE SODIUM 40 MG/VIAL IV SCH ×2 (08:43→20:20)
[2024-09-26] MEDS: MORPHINE SULFATE 2 MG/ML INJ (NOT FOR IM USE) IV PRN (08:43)
[2024-09-26] MEDS ORDERED: NALOXONE HCL 0.4MG/ML VIAL IV PRN (08:45)
[2024-09-26 08:46] LABS: BG BASE EXCESS -2.4 mmol/L (-2.0-3.0); BG CARBOXYHEMOGLOBIN 2.2 % (0.5-1.5); BG DEOXYHEMOGLOBIN 3.2 % (0.0-5.0); BG FRACTION INSPIRED OXYGEN 21; BG HCO3 ACT 21.4 mmol/L (21.0-28.0); BG METHEMOGLOBIN 0.1 % (0.5-1.5); BG OXYGEN SATURATION 96.7 % (94.0-98.0); BG OXYHEMOGLOBIN 94.5 % (94.0-98.0); BG PCO2 34.2 mmHg (35.0-48.0); BG PH 7.414 (7.350-7.450); BG PO2 83.0 mmHg (83.0-108.0); BG SAMPLE SITE RIGHT RADIAL; BG TOTAL HEMOGLOBIN 14.8 g/dL (13.5-17.5); BG VENT MODE ROOM AIR
[2024-09-26] MEDS: INSULIN GLARGINE 100 UNITS/ML SUBCUT SCH (10:00)
[2024-09-26 12:05] LABS: BASOPHILS % 0.8 % (0.0-2.0); EOSINOPHILS % 0.7 % (0.0-5.0); HEMATOCRIT. 39.7 % (42.0-52.0); HEMOGLOBIN. 12.9 g/dL (14.0-18.0); LYMPHOCYTES % 11.7 % (20.0-50.0); MEAN PLATELET VOLUME 8.0 fl (7.4-10.4); MONOCYTES % 3.3 % (2.0-8.0); NEUTROPHILS % 83.5 % (40.0-76.0); PLATELET 356 x1000/uL (130-400); RED BLOOD CELL COUNT 4.13 mill/uL (4.7-6.1); RED CELL DISTRIBUTION WIDTH 14.6 % (11.6-14.6)
[2024-09-26 12:21] LABS: UREA NITROGEN BLOOD 62 mg/dL (9-23)
[2024-09-26 12:23] LABS: PHOSPHORUS 3.2 mg/dL (2.5-4.9)
[2024-09-26 12:30] LABS: CREATININE 10.3 mg/dL (0.6-1.3)
[2024-09-26] MEDS: BLOOD SUGAR DIAGNOSTIC STRIP TEST SCH (12:35)
[2024-09-26] MEDS: INSULIN LISPRO 100 UNITS/ML SUBCUT SCH ×3 (13:31→17:23)
[2024-09-26] MEDS: ENOXAPARIN 30MG/0.3ML SYR SUBCUT SCH (17:47)
[2024-09-26] MEDS: MELATONIN 3MG TABLET PO PRN (23:23)
[2024-09-27] VITALS (11 sets, daily range): BP systolic 116–158; BP diastolic 67–110; PULSE 55–68; RESP 16–25; TEMP 36.9–37.2; O2SAT 96–100
[2024-09-27 08:01] LABS: BASOPHILS % 1.4 % (0.0-2.0); EOSINOPHILS % 3.2 % (0.0-5.0); HEMATOCRIT. 35.5 % (42.0-52.0); HEMOGLOBIN. 12.0 g/dL (14.0-18.0); LYMPHOCYTES % 18.7 % (20.0-50.0); MEAN PLATELET VOLUME 8.0 fl (7.4-10.4); MONOCYTES % 6.7 % (2.0-8.0); NEUTROPHILS % 70.0 % (40.0-76.0); PLATELET 299 x1000/uL (130-400); RED BLOOD CELL COUNT 3.71 mill/uL (4.7-6.1); RED CELL DISTRIBUTION WIDTH 15.0 % (11.6-14.6)
[2024-09-27 08:24] LABS: UREA NITROGEN BLOOD 32 mg/dL (9-23)
[2024-09-27 08:27] LABS: PHOSPHORUS 3.5 mg/dL (2.5-4.9)
[2024-09-27 09:28] LABS: CREATININE 6.3 mg/dL (0.6-1.3)
== END 2024-09-27 08:22 | disposition left against medical advice (07) | DRG 637 ==
LOC: ER 12:23 → CVICU 15:31 → EDBEDREQSVC 15:33 → EDBEDREQ 15:33 → EDBEDREQTM 15:33 → ENRESERV 16:21
PROVIDERS: ADMIT Hospitalist; ATTEND Hospitalist
PROC: 5A1D70Z Performance of Urinary Filtration, Intermittent, Less than 6 Hours Per Day (ICD-10-PCS; principal; 2024-09-26)
DX: E10.10 Type 1 diabetes mellitus with ketoacidosis without coma (principal); N18.6 End stage renal disease; I12.0 Hypertensive chronic kidney disease with stage 5 chronic kidney disease or end stage renal disease; Z99.2 Dependence on renal dialysis; E10.22 Type 1 diabetes mellitus with diabetic chronic kidney disease; E87.5 Hyperkalemia; Z53.29 Procedure and treatment not carried out because of patient's decision for other reasons; E78.00 Pure hypercholesterolemia, unspecified; E78.5 Hyperlipidemia, unspecified; Z96.41 Presence of insulin pump (external) (internal); Z96.649 Presence of unspecified artificial hip joint; Z79.4 Long term (current) use of insulin; Z79.899 Other long term (current) drug therapy; Z88.2 Allergy status to sulfonamides; Z88.3 Allergy status to other anti-infective agents; Z91.158 Patient's noncompliance with renal dialysis for other reason; Z86.19 Personal history of other infectious and parasitic diseases
CPT/HCPCS: 36415; 36600; 71045; 80048; 80051; 80061; 80076; 82010; 82150; 82375; 82553; 82805; 82962; 83036; 83605; 83735; 83880; 83930; 84100; 84145; 84439; 84443; 84484; 85025; 86705; 86709; 87340; 90935; 93005; 93970; 99291; A4606; J1650; J1815; J2270; J2470; J2543; J3480; J7030; J7042; J7050

== ENCOUNTER 2024-10-13 17:04 | Emergency (ER) | payer MEDICARE, MEDICAID ==
[~2024-10-13] VITALS: Ht 177.8 cm; Wt 100.0 kg
[2024-10-13 17:13] VITALS: BP 125/88; PULSE 71; RESP 16; TEMP 36.7; O2SAT 97
== END 2024-10-13 20:17 | disposition left against medical advice (07) ==
LOC: ER 17:04
DX: E11.22 Type 2 diabetes mellitus with diabetic chronic kidney disease (principal); Z49.01 Encounter for fitting and adjustment of extracorporeal dialysis catheter; E78.00 Pure hypercholesterolemia, unspecified; I12.0 Hypertensive chronic kidney disease with stage 5 chronic kidney disease or end stage renal disease; N18.6 End stage renal disease; Z79.82 Long term (current) use of aspirin; Z79.899 Other long term (current) drug therapy; Z88.1 Allergy status to other antibiotic agents; Z88.2 Allergy status to sulfonamides; Z96.649 Presence of unspecified artificial hip joint
CPT/HCPCS: 99283

== ENCOUNTER 2024-12-02 01:16 | Emergency (ER) | payer MEDICARE, MEDICAID ==
[~2024-12-02] VITALS: Ht 172.7 cm; Wt 109.0 kg
[2024-12-02 01:18] VITALS: O2SAT 99
[2024-12-02] MEDS: DEXTROSE 50% WATER 50ML SYRINGE IV ONE (02:21)
[2024-12-02] MEDS: PIPERACILLIN/TAZO 3.375G/50ML 50 ML IV ONE (02:22)
[2024-12-02 02:32] LABS: BASOPHILS % 1.2 % (0.0-2.0); EOSINOPHILS % 0.3 % (0.0-5.0); HEMATOCRIT. 41.5 % (42.0-52.0); HEMOGLOBIN. 13.4 g/dL (14.0-18.0); LYMPHOCYTES % 8.0 % (20.0-50.0); MEAN PLATELET VOLUME 8.8 fl (7.4-10.4); MONOCYTES % 4.8 % (2.0-8.0); NEUTROPHILS % 85.7 % (40.0-76.0); PLATELET 285 x1000/uL (130-400); RED BLOOD CELL COUNT 4.68 mill/uL (4.7-6.1); RED CELL DISTRIBUTION WIDTH 16.0 % (11.6-14.6)
[2024-12-02 02:40] VITALS: TEMP 36.5
[2024-12-02 02:48] LABS: UREA NITROGEN BLOOD 35 mg/dL (9-23)
[2024-12-02 02:50] LABS: ASPARTATE AMINOTRANSFERASE 17 IU/L (<34); BILIRUBIN DIRECT 0.1 mg/dL (<=3.0)
[2024-12-02 02:51] LABS: BILIRUBIN TOTAL 0.3 mg/dL (0.1-1.0); PROTEIN TOTAL 6.9 g/dL (6.0-8.3)
[2024-12-02] MEDS: HYDROCORTISONE SOD SUCCINATE 100 MG/2 ML VIAL IV ONE (02:55)
[2024-12-02] MEDS: HYDRALAZINE 20MG/ML VIAL IV ONE (02:58)
[2024-12-02 03:10] LABS: CREATININE 8.2 mg/dL (0.6-1.3)
[2024-12-02 03:12] LABS: CLARITY URINE CLEAR (CLEAR); COLOR URINE YELLOW (YELLOW); GLUCOSE URINE 2+ (NEGATIVE); KETONES URINE NEGATIVE (NEGATIVE); LEUKOCYTE ESTERASE URINE NEGATIVE (NEGATIVE); NITRITE URINE NEGATIVE (NEGATIVE); OCCULT BLOOD URINE TRACE (NEGATIVE); PH URINE 7.5 (4.5-8.0); PROTEIN URINE 3+ (NEGATIVE); SPECIFIC GRAVITY URINE 1.014 (1.005-1.030); UROBILINOGEN URINE 0.2 E.U./dL (0.2-1.0)
[2024-12-02 03:24] LABS: SQUAMOUS EPITHELIAL CELL URINE NONE SEEN /lpf (RARE/1+); WBC URINE 0-2 /hpf (0-2)
[2024-12-02 03:25] LABS: BACTERIA URINE TRACE
[2024-12-02 03:34] LABS: TROPONIN I HIGH SENSITIVITY 32 ng/L (3.0-53)
[2024-12-02 05:14] VITALS: BP 144/85; PULSE 59; RESP 18; O2SAT 98
[2024-12-02] MEDS ORDERED: ACETAMINOPHEN 325MG TABLET PO PRN ×2 (05:30)
[2024-12-02] MEDS ORDERED: IPRATROPIUM/ALBUTEROL 0.5-3(2.5)MG/3ML NEB HHN PRN (05:30)
[2024-12-02] MEDS ORDERED: DEXTROSE 50% WATER 50ML SYRINGE IV PRN (05:30)
[2024-12-02] MEDS ORDERED: DOCUSATE SODIUM 100MG CAPSULE PO PRN (05:30)
[2024-12-02] MEDS ORDERED: ONDANSETRON HCL 4MG/2ML INJ IV PRN (05:30)
[2024-12-02] MEDS ORDERED: GUAIFENESIN 200MG/10ML SUGAR FREE UDC PO PRN (05:30)
[2024-12-02] MEDS ORDERED: VANCOMYCIN 2GM PMX (XELLIA) 400 ML IV NR (06:00)
[2024-12-02 07:47] LABS: INFLUENZA TYPE A Presumptive Negative (Pres. Neg.)
[2024-12-02 07:48] LABS: INFLUENZA TYPE B Presumptive Negative (Pres. Neg.); RESPIRATORY SYNCYTIAL VIRUS Not Detected (Not Detectd)
[2024-12-02] MEDS ORDERED: PANTOPRAZOLE 40MG DR TABLET PO SCH (07:50)
[2024-12-02] MEDS ORDERED: INSULIN LISPRO 100 UNITS/ML SUBCUT SCH (08:20)
[2024-12-02] MEDS ORDERED: ENOXAPARIN 30MG/0.3ML SYR SUBCUT SCH (09:00)
[2024-12-02] MEDS ORDERED: BLOOD SUGAR DIAGNOSTIC STRIP TEST SCH (09:00)
[2024-12-02] MEDS ORDERED: PIPERACILLIN/TAZO 3.375G/50ML 50 ML IV SCH (09:00)
[2024-12-04] MEDS ORDERED: LEVO250T74 MT (15:16)
== END 2024-12-02 06:34 | disposition left against medical advice (07) ==
LOC: ER 01:18 → EDBEDREQ 05:02 → EDBEDREQTM 05:02 → ER 06:34 → CMPBEDREQ 07:23
DX: E87.6 Hypokalemia (principal); E10.649 Type 1 diabetes mellitus with hypoglycemia without coma; E10.22 Type 1 diabetes mellitus with diabetic chronic kidney disease; E78.00 Pure hypercholesterolemia, unspecified; E87.20 Acidosis, unspecified; I12.0 Hypertensive chronic kidney disease with stage 5 chronic kidney disease or end stage renal disease; R06.02 Shortness of breath; N18.6 End stage renal disease; Z79.4 Long term (current) use of insulin; Z79.82 Long term (current) use of aspirin; Z79.899 Other long term (current) drug therapy; Z86.19 Personal history of other infectious and parasitic diseases; Z86.79 Personal history of other diseases of the circulatory system; Z88.1 Allergy status to other antibiotic agents; Z88.2 Allergy status to sulfonamides; Z91.148 Patient's other noncompliance with medication regimen for other reason; Z96.649 Presence of unspecified artificial hip joint; Z99.2 Dependence on renal dialysis
CPT/HCPCS: 80076; 80048; 81003; 80320; 82962; 83880; 83605; 83690; 83735; 85025; 86850; 86900; 86901; 87420; 87040; 84484; 87804 ×2; 36415; 71045; 93005; 96365; 96375; 99291; J0360; J1720; J2543; J3373; G0480

== ENCOUNTER 2024-12-19 18:06 | Inpatient (IN) | payer MEDICARE, MEDICAID ==
[~2024-12-19] VITALS: Ht 175.3 cm; Wt 90.7 kg
[~2024-12-19 18:06] MED LIST changes: -DIPH-1091 MT; +LEVO250T74 MT
[2024-12-19 19:07] LABS: BASOPHILS % 0.9 % (0.0-2.0); EOSINOPHILS % 0.4 % (0.0-5.0); HEMATOCRIT. 42.7 % (42.0-52.0); HEMOGLOBIN. 13.9 g/dL (14.0-18.0); LYMPHOCYTES % 18.6 % (20.0-50.0); MEAN PLATELET VOLUME 8.0 fl (7.4-10.4); MONOCYTES % 9.0 % (2.0-8.0); NEUTROPHILS % 71.1 % (40.0-76.0); PLATELET 347 x1000/uL (130-400); RED BLOOD CELL COUNT 4.92 mill/uL (4.7-6.1); RED CELL DISTRIBUTION WIDTH 15.8 % (11.6-14.6)
[2024-12-19 19:22] LABS: UREA NITROGEN BLOOD 47 mg/dL (9-23)
[2024-12-19 19:23] LABS: ASPARTATE AMINOTRANSFERASE 15 IU/L (<34)
[2024-12-19 19:24] LABS: BILIRUBIN DIRECT 0.3 mg/dL (<=3.0); BILIRUBIN TOTAL 0.7 mg/dL (0.1-1.0); PROTEIN TOTAL 7.6 g/dL (6.0-8.3)
[2024-12-19 19:25] LABS: TROPONIN I HIGH SENSITIVITY 27 ng/L (3.0-53)
[2024-12-19 19:54] LABS: CREATININE 7.8 mg/dL (0.6-1.3)
[2024-12-19 21:12] LABS: TROPONIN I HIGH SENSITIVITY 27 ng/L (3.0-53)
[2024-12-19] MEDS ORDERED: ONDANSETRON HCL 4MG/2ML INJ IV PRN (22:00)
[2024-12-19] MEDS ORDERED: CLONIDINE 0.1MG TABLET PO PRN (22:00)
[2024-12-19] MEDS ORDERED: DEXTROSE 50% WATER 50ML SYRINGE IV PRN (22:00)
[2024-12-19] MEDS ORDERED: DOCUSATE SODIUM 100MG CAPSULE PO PRN (22:00)
[2024-12-19] MEDS ORDERED: ACETAMINOPHEN 325MG TABLET PO PRN (22:00)
[2024-12-19 22:32] VITALS: BP 145/75; PULSE 71; RESP 18; TEMP 36.9184
[2024-12-19] MEDS: ACETAMINOPHEN 325MG TABLET PO PRN (23:35)
[2024-12-20] VITALS: BP 121/69; PULSE 71; RESP 18; TEMP 36.4; O2SAT 97
[2024-12-20 04:00] VITALS: BP 103/57; PULSE 60; RESP 18; TEMP 36.4; O2SAT 96
[2024-12-20] MEDS: HYDRALAZINE HCL 50MG TABLET PO SCH (06:00)
[2024-12-20] MEDS: BLOOD SUGAR DIAGNOSTIC STRIP TEST SCH (06:01)
[2024-12-20 08:00] VITALS: BP 132/71; PULSE 73; RESP 18; TEMP 36.3; O2SAT 98
[2024-12-20] MEDS: ASPIRIN 81MG TABLET PO SCH (09:07)
[2024-12-20] MEDS: FUROSEMIDE 100MG/10ML VIAL IVP SCH (09:07)
[2024-12-20] MEDS: AMLODIPINE 10MG TABLET PO SCH (09:08)
[2024-12-20] MEDS: CARVEDILOL 3.125 MG TABLET PO SCH (09:08)
[2024-12-20] MEDS: ENOXAPARIN 30MG/0.3ML SYR SUBCUT SCH (09:09)
[2024-12-20] MEDS: IPRATROPIUM/ALBUTEROL 0.5-3(2.5)MG/3ML NEB HHN PRN (10:25)
[2024-12-20 10:28] VITALS: PULSE 75; RESP 20; O2SAT 98
[2024-12-20 10:41] LABS: BASOPHILS % 1.3 % (0.0-2.0); EOSINOPHILS % 3.2 % (0.0-5.0); HEMATOCRIT. 39.7 % (42.0-52.0); HEMOGLOBIN. 12.8 g/dL (14.0-18.0); LYMPHOCYTES % 21.8 % (20.0-50.0); MEAN PLATELET VOLUME 8.6 fl (7.4-10.4); MONOCYTES % 9.1 % (2.0-8.0); NEUTROPHILS % 64.6 % (40.0-76.0); PLATELET 323 x1000/uL (130-400); RED BLOOD CELL COUNT 4.55 mill/uL (4.7-6.1); RED CELL DISTRIBUTION WIDTH 16.2 % (11.6-14.6)
[2024-12-20 11:09] LABS: CLARITY URINE CLEAR (CLEAR); COLOR URINE YELLOW (YELLOW); GLUCOSE URINE 1+ (NEGATIVE); KETONES URINE TRACE (NEGATIVE); LEUKOCYTE ESTERASE URINE TRACE (NEGATIVE); NITRITE URINE NEGATIVE (NEGATIVE); OCCULT BLOOD URINE NEGATIVE (NEGATIVE); PH URINE 6.0 (4.5-8.0); PROTEIN URINE 3+ (NEGATIVE); SPECIFIC GRAVITY URINE 1.015 (1.005-1.030); UROBILINOGEN URINE 0.2 E.U./dL (0.2-1.0)
[2024-12-20 11:26] LABS: UREA NITROGEN BLOOD 49 mg/dL (9-23)
[2024-12-20 11:27] LABS: T4 FREE 1.85 ng/dL (0.89-1.76)
[2024-12-20 11:28] LABS: PHOSPHORUS 2.7 mg/dL (2.5-4.9)
[2024-12-20 11:32] LABS: CREATININE 8.1 mg/dL (0.6-1.3)
[2024-12-20 11:37] LABS: *AMPHETAMINES SCREEN URINE NEGATIVE (NEGATIVE); *BARBITURATES SCREEN URINE NEGATIVE (NEGATIVE); *BENZODIAZEPINES SCREEN URINE NEGATIVE (NEGATIVE); *COCAINE SCREEN URINE NEGATIVE (NEGATIVE); METHADONE URINE SCREEN NEGATIVE (NEGATIVE)
[2024-12-20 11:38] LABS: CANNABINOID URINE SCREEN PRESUMPTIVE POSITIVE (NEGATIVE); ECSTASY MDMA SCREEN URINE NEGATIVE (NEGATIVE); OPIATES URINE SCREEN NEGATIVE (NEGATIVE); PHENCYCLIDINE URINE SCREEN NEGATIVE (NEGATIVE)
[2024-12-20 11:44] LABS: BACTERIA URINE TRACE; RBC URINE 0-2 /hpf (0-2); SQUAMOUS EPITHELIAL CELL URINE RARE /lpf (RARE/1+); YEAST URINE NONE SEEN
[2024-12-20 15:48] LABS: HEPATITIS C AB REACTIVE (Pos) (Negative)
== END 2024-12-20 11:34 | disposition left against medical advice (07) | DRG 640 ==
LOC: ER 18:06 → EDBEDREQTM 20:01 → EDBEDREQ 20:01 → ENRESERV 20:16 → 5WST 20:54
PROVIDERS: ADMIT Internal Medicine; ATTEND Internal Medicine
DX: E87.70 Fluid overload, unspecified (principal); N18.6 End stage renal disease; I12.0 Hypertensive chronic kidney disease with stage 5 chronic kidney disease or end stage renal disease; Z99.2 Dependence on renal dialysis; E11.22 Type 2 diabetes mellitus with diabetic chronic kidney disease; E11.649 Type 2 diabetes mellitus with hypoglycemia without coma; Z20.822 Contact with and (suspected) exposure to COVID-19; E83.52 Hypercalcemia; Z53.29 Procedure and treatment not carried out because of patient's decision for other reasons; Z96.41 Presence of insulin pump (external) (internal); Z96.642 Presence of left artificial hip joint; E78.00 Pure hypercholesterolemia, unspecified; Z79.4 Long term (current) use of insulin; Z88.2 Allergy status to sulfonamides; Z88.3 Allergy status to other anti-infective agents; Z79.899 Other long term (current) drug therapy
CPT/HCPCS: 36415; 71045; 80048; 80076; 80305; 81003; 82962; 83036; 83605; 83735; 83880; 84100; 84145; 84439; 84443; 84484; 85025; 86705; 87340; 87426; 93005; 94070; 94640; 94664; 99291; J1650; J1938